=== PATIENT | female | born 1940 | race Caucasian/White ===

== ENCOUNTER 2025-06-27 16:49 | Inpatient (IN) | payer MEDICARE, SELFPAY ==
[2025-06-27] VITALS (26 sets, daily range): BP systolic 144–179; BP diastolic 99–100; PULSE 55–119; TEMP 36.6; O2SAT 94–99; BMI 33.0
--- NOTE | 2025-06-27 17:10 | ECG_ITS ---
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 Measurements Intervals [place] Rate: 64 P: 23 IN: 132 QRS: -25 QRSD: 90 T: 180 QT: 312 QTc: 322 Interpretive Statements Possible Sinus rhythm 4068 Nonspecific Twave abnormality 7202 Moderate left axis deviation 8101 Low QRS voltage in limb leads 8305 Short QTc interval ARTIFACT IN LEAD(S) precludes accurate interpretation, repeat ECG is recommended 9150 abnormal ECG No previous ECG available for comparison Electronically Signed On 06-27-2025 20:34:19 EST by DAVID RITTER M.D.
[2025-06-27 17:42] LABS: Hematocrit 34.1 % (36.0-48.0); Hemoglobin 11.3 g/dL (12.0-16.0); Immature Granulocytes Abs Auto 0.04 10^3/uL (0.00-0.03); Immature Granulocytes Pct Auto 0.4 % (0.0-0.5); Lymphocytes Absolute Auto 1.9 10^3/uL (1.2-3.8); Mean Corpuscular HGB Conc 33.1 g/dL (29.9-35.2); Mean Corpuscular Hemoglobin 29.4 pg (26.7-34.0); Mean Corpuscular Volume 88.6 fL (81.0-99.0); Platelet Count 257 10^3/uL (150-450); Red Blood Count 3.85 10^6/uL (4.20-5.40); White Blood Count 11.1 10^3/uL (4.0-11.0)
--- OUTSIDE RECORDS SUMMARY | 2025-06-27 17:57 | XMS_ITS | Clinical Summary ---
Author Organization [facility] Address [facility] [place] [id number] Care Team Providers Care Field Marketing Director Name Role Phone Unavailable Primary Care Provider Unavailabl e Allergies No known active allergies Medications * This document contains information received from the source organization and may not represent a complete record from that organization. MedicationSigDispense QuantityRefillsLast FilledStart DateEnd DateStatus candesartan/hydrochlorothiazid(ATACAND HCT 32 MG-12.5 MG TAB) Take one(1) tablet daily.ctive LEVOTHYROXINE 112 MCG TAB Take one(1) tablet daily. 0 ctive famotidine(PEPCID AC 20 MG TAB) Take one(1) tablet twice daily. 60 6110/07/2007ctive URSODIOL 300 MG CAP Take one(1) capsule twice daily.ctive CALCIUM CITRATE-VITAMIN D3 500 MG-250 UNIT/2.5 GRAM ORAL POWDER Take one(1) tablet two(2) times daily.ctive ascorbic acid(VITAMIN C 500 MG TAB) Take one(1) tablet daily.ctive MULTIVITAMIN TAB Take one(1) tablet daily.ctive cyanocobalamin(VITAMIN B-12 1,000 MCG TAB) Take one(1) tablet daily.ctive Active Problems ProblemNoted DateDiagnosed DateUnspecified essential aqbsxuwwvlsp49/21/2009 Unspecified zyvkwdzracxlmi76/21/2009Generalized osteoarthrosis, unspecified site 09/11/2008Morbid kkgmxwz1006/26/2008Other and unspecified postsurgical ifxfzkrlwodai46/24/2008 Family History Medical HistoryRelationCommentsCancerFatherlungDiabetesMotherRelationStatus CommentsFatherMother Social History Tobacco UseTypesPacks/DayYears UsedDateSmoking Tobacco: NeverAlcohol UseStandard Drinks/WeekCommentsNo0 (1 standard drink = 0.6 oz pure alcohol)Comments NoSex and Gender InformationValueDate RecordedSex Assigned at BirthNot on file Legal KsuXxrnqx25/02/2012 8:15 AM ESTGender IdentityNot on fileSexual OrientationNot on file Last Filed Vital Signs Vital SignReadingTime TakenCommentsBlood Raqxbsse63/59009/11/2008 2:45 PM EST Czjuc0588/21/2009 2:45 PM NSEMzihplbnowr93.3 ??C (97.3 ??F)08/19/2008 7:55 AM ESTRespiratory Ivdr699910/15/2007 3:10 PM ESTOxygen Vnxcwtdgua05%08/14/2008 3:10 PM ESTInhaled Oxygen Concentration--Afprmk22.9 kg (198 lb 4.8 oz)09/11/2008 2:45 PM XBOApjlil520.5 cm (5' 2 )09/11/2008 2:45 PM ESTBody Mass Index36.27009/11/2008 2:45 PM EST Plan of Treatment Health MaintenanceDue DateLast DoneCommentsAnxiety Mqxdbfyqr14/04/1960Depression Eraxvdqxy82/04/1960DTaP,Tdap,Td Vaccine (1 - Tdap)1Pneumococcal Vaccine: 50+ (1 of 1 - PCV)1992Shingrix Vaccine (1 of 2)1992Bone Density Topqjagyv82/04/2007Diabetes Qvxgpyzts18, 08/13/2008, 08/06/2008, Additional history existsRSV Vaccine (1 - 1-dose 75+ series) 2017Advance Directive Uadkauqkro08/01/2025Covid-19 Vaccine (1 - 2024-26 season)2025Influenza Vaccine (#1)2025 Procedures Procedure NamePriorityDate/TimeAssociated DiagnosisCommentsBASIC METABOLIC PANEL Kfdgryp6508/14/2008 5:30 AM EST from Last 3 Months or Most Recently Relevant to Health Maintenance Results * (ABNORMAL) BASIC METABOLIC PNL (08/14/2008 5:30 AM EST)ComponentValueRef Range Test MethodAnalysis TimePerformed AtPathologist DyvdljfdrTvvpmky517(H)65 - 100 mg/dLHOLMES COUNTY [facility] LABORATORYBUN6(L)8 - 25 mg/dLHOLMES [facility] LABORATORYCreatinine0.58(L)0.70 - 1.40 mg/dLHOLMES [facility] Fxjwfx139537 - 148 mmol/LCOHIOHEALTH [facility] LABORATORYPotassium3.3(L)3.5 - 5.0 mmol/LCOHIOHEALTH [facility]'BLENESS [facility]PITAL WMMHJLODJEAsucsgsb97839 - 110 mmol/LCOHIOHEALTH [facility]'BLENESS [facility] JVOVVDUVZTQA01359 - 32 mmol/LCOHIOHEALTH [facility]'BLEN[facility] LABORATORYAnion Gap80 - 15 mmol/LCOHIOHEALTH [facility]'BLEN[facility] LABORATORYCalcium8.78.5 - 10.5 mg/dL [facility] LABORATORYSpecimen (Source)Anatomical Location / LateralityCollection Method / VolumeCollection TimeReceived TimeBlood specimen (specimen)BLOOD SPECIMEN / Ruwornf5108/14/2008 5:30 AM EST Narrative Authorizing ProviderResult TypeResult StatusPhilip R SchauerLABORATORYFinal ResultPerforming OrganizationAddressCity/State/ZIP CodePhone Number [facility] [address] [place] [address] from Last 3 Months or Most Recently Relevant to Health Maintenance Insurance
--- OUTSIDE RECORDS SUMMARY | 2025-06-27 17:57 | XMS_ITS | Clinical Summary ---
Author Organization [facility] Address [address] [place] [address] Care Team Providers Care Bookkeeping Clerk Name Role Phone Unavailable Primary Care Provider Unavailabl e Social History Tobacco UseTypesPacks/DayYears UsedDateSmoking Tobacco: Never Assessed CommentsUnknownSex and Gender InformationValueDate RecordedSex Assigned at Not on fileLegal AsfElsxrx51/15/2023 7:23 PM EDTGender IdentityNot on fileSexual OrientationNot on file Last Filed Vital Signs Vital SignReadingTime TakenCommentsBlood Lcvjfmqg360/8804/03/2019 12:00 PM EDT Pulse--Temperature--Respiratory Rate--Oxygen Saturation--Inhaled Oxygen Concentration--Wmsihh51.9 kg (163 lb)04/03/2019 12:00 PM UBPLlnjoa046 cm (5' 3 ) 04/03/2019 12:00 PM EDTBody Mass Index28.8704/03/2019 12:00 PM EDT Plan of Treatment Not on file
--- NOTE | 2025-06-27 18:00 | ED_ITS ---
HPI - Weakness General Chief complaint: Weakness Stated complaint: TIRED, LEGS HURTING, WOULD LIKE CHECKED OUT Time Seen by Provider: 06/27/25 17:07 Source: family Mode of arrival: Wheelchair History of Present Illness HPI Narrative: The patient is 85 years old female brought to us by the daughter who is the POA she said that she did not see her for the last 3 days. And today she noted that she is weak and shuffling her gait, the patient admitted that she is feeling today tired more than usual and she have history of joint pain and arthritis and that usually caused her to have pain when she is ambulating The patient lives by herself and she is able to do her daily activities although today she was not able to clean the house. She had no chest pain nausea vomiting or any diarrhea she also denies any decrease in appetite or any fever or chills The patient denies any falls although she sometimes she feels that she is only going to fall Related Data Home Medications ?Medication ?Instructions ?Recorded ?Confirmed No Known Home Medications 06/27/2502/13 Allergies Allergy/AdvReac Type Severity Reaction Status Date / Time No Known Drug Allergies Allergy Verified 06/27/25 17:05 Review of Systems ROS Status of ROS 10 or more systems reviewed and unremark able except as noted in history and below PFSH PFSH Social History Little interest or pleasure in doing things: not at all Feeling down, depressed, or hopeless: not at all Exam Narrative Exam Narrative: Nurses notes and vital signs reviewed and patient is not hypoxic. General: Well-appearing and in no apparent distress. Skin: Warm, dry, no pallor noted. No rash. Head: Normocephalic, atraumatic. Neck: Supple, non-tender. Cardiovascular: Regular Rate and Rhythm without murmur, gallop or rub. Respiratory: No accessory muscle use or respiratory distress. Lungs are clear to auscultation, no wheezing, rales or rhonchi Chest Wall: no tenderness Back: No midline thoracic or lumbar vertebral tenderness. No CVA tenderness Musculoskeletal: normal ROM, no calf or popliteal tenderness, no lower extremity edema/swelling GI: Abdomen is soft, non-distended. Normal bowel sounds. No masses appreciated. No tenderness to palpation. No rebound, guarding, or rigidity noted. Neurological: A&O x1. No cranial nerve dysfunction observed. Constitutional Vital Signs, click to edit/add: Last Vital Signs Temp 97.9 F 06/27/25 16:59 Pulse 69 06/27/25 16:59 Resp 16 06/27/25 16:59 BP 144/100 H 06/27/25 16:59 Pulse Ox 98 06/27/25 16:59 O2 Del Method Room Air 06/27/25 16:59 Course Vital Signs Vital signs: Vital Signs Temperature 97.9 F 06/27/25 16:59 Pulse Rate 69 06/27/25 16:59 Respiratory Rate 16 06/27/25 16:59 Blood Pressure 144/100 H 06/27/25 16:59 Pulse Oximetry 98 06/27/25 16:59 Oxygen Delivery Method Room Air 06/27/25 16:59 Temperature 97.9 F 06/27/25 16:59 Pulse Rate 69 06/27/25 16:59 Respiratory Rate 16 06/27/25 16:59 Blood Pressure 144/100 H 06/27/25 16:59 Pulse Oximetry 98 06/27/25 16:59 Oxygen Delivery Method Room Air 06/27/25 16:59 MDM - Weakness MDM Narrative Medical decision making narrative: The patient EKG showing sinus rhythm with a heart rate of [address] elevation or depression nonspecific changes observed CBC shows no acute significant pathology but the chemistry showing an acute kidney injury with creatinine 1.8 in addition to the potassium being 2.9 The EKG showing no hyperkalemic changes and there is multiple artifacts The patient TSH was significantly elevated above 100 The patient definitely need to start taking her levothyroxine again and I had her case discussed with and he agreed on admitting the patient for further evaluation Lab Data Labs: Lab Results 06/27/25 Range/Units 17:37 WBC 11.1 H (4.0-11.0) 10^3/uL RBC 3.85 L (4.20-5.40) 10^6/uL Hgb 11.3 L (12.0-16.0) g/dL Hct 34.1 L (36.0-48.0) % MCV 88.6 (81.0-99.0) fL MCH 29.4 (26.7-34.0) pg MCHC 33.1 (29.9-35.2) g/dL RDW 14.1 (11.0-15.0) % Plt Count 257 (150-450) 10^3/uL MPV 10.5 (9.5-13.5) fL Neut % (Auto) 72.2 (43.0-75.0) % Lymph % (Auto) 17.3 L (20.5-60.0) % [place] % (Auto) 8.6 (1.7-12.0) % Eos % (Auto) 1.0 (0.9-7.0) % Baso % (Auto) 0.5 (0.2-2.0) % Neut # (Auto) 8.0 H (1.4-6.5) 10^3/uL Lymph # (Auto) 1.9 (1.2-3.8) 10^3/uL [place] # (Auto) 1.0 H (0.3-0.8) 10^3/uL Eos # (Auto) 0.1 (0.0-0.7) 10^3/uL Baso # (Auto) 0.1 (0.0-0.1) 10^3/uL Abs Immat Gran (auto) 0.04 H (0.00-0.03) 10^3/uL Imm/Tot Granulo (auto) 0.4 (0.0-0.5) % Sodium 142 (136-145) mmol/L Potassium 2.9 L* (3.5-5.1) mmol/L Chloride 103 (98-107) mmol/L Carbon Dioxide 29.1 (21.0-32.0) mmol/L Anion Gap 12.8 BUN 16.0 (7.0-18.0) mg/dL Creatinine 1.84 H (0.55-1.02) mg/dL Est GFR ( Amer) 32 L (>=60 mL/min/1.73m^2) Est GFR (Non-Af Amer) 26 L (>=60 mL/min/1.73m^2) BUN/Creatinine Ratio 8.7 Glucose 92 (74-106) mg/dL Calcium 9.6 (8.5-10.1) mg/dL Total Bilirubin 0.7 (0.2-1.0) mg/dL AST 34 (15-37) U/L ALT 37 (14-59) U/L Alkaline Phosphatase 74 (46-116) U/L Troponin I High Sens 6.8 (4.0-51.3) pg/mL Total Protein 6.9 (6.4-8.2) g/dL Albumin 3.7 (3.4-5.0) g/dL Globulin 3.2 g/dL Albumin/Globulin Ratio 1.2 TSH 116.469 H (0.358-3.740) uIU/mL Discharge Plan Discharge Chief Complaint: Weakness Clinical Impression: LJ (acute kidney injury), Hypokalemia, Hypothyroidism Patient Disposition: Admitted As Inpatient Time of Disposition Decision: 18:50
[2025-06-27 18:02] LABS: Alanine Aminotransferase 37 U/L (14-59); Albumin Globulin Ratio 1.2; Albumin Level 3.7 g/dL (3.4-5.0); Alkaline Phosphatase 74 U/L (46-116); Anion Gap 12.8; Aspartate Amino Transferase 34 U/L (15-37); Blood Urea Nitrogen 16.0 mg/dL (7.0-18.0); Calcium 9.6 mg/dL (8.5-10.1); Carbon Dioxide 29.1 mmol/L (21.0-32.0); Chloride 103 mmol/L (98-107); Estimated GFR (African America 32 (>=60 mL/min/1.73m^2); Estimated GFR (Non-African Ame 26 (>=60 mL/min/1.73m^2); Globulin 3.2 g/dL; Glucose 92 mg/dL (74-106); Sodium 142 mmol/L (136-145); Total Protein 6.9 g/dL (6.4-8.2)
[2025-06-27 18:04] LABS: Potassium 2.9 mmol/L (3.5-5.1)
[2025-06-27 18:28] LABS: Thyroid Stimulating Hormone 116.469 uIU/mL (0.358-3.740)
[2025-06-27] MEDS: POTASSIUM BICARBONATE/CIT 25 MEQ TABLET EFF 50 MEQ PO (18:33)
[2025-06-27] MEDS: 0.9 % SODIUM CHLORIDE 1,000 ML 250 ML IV (18:34)
--- NOTE | 2025-06-27 19:26 | CT_ITS ---
The [place] [id number] Patient Name: JAMAL RAMSEY MRN: [id number] date: 1940 Sex: F Assigned Patient Location: ED.MAIN Current Patient Location: ED.MAIN Accession/Order Number: [id number] Exam Date: 06/27/2025 19:38 Report Date: 06/27/2025 20:03 At the request of: OMEGA WEAVER MD Procedure: CT head/brain wo con Unenhanced head CT TECHNIQUE: Contiguous axial imaging of the head. The CT exam was performed using one or more the following dose reduction techniques: Automated exposure control, adjustment of the MA and/or Kv according to patient size, or use of the iterative reconstruction technique. COMPARISON: None HISTORY: Leg weakness. Cognitive loss VENTRICLES: Within normal limits ATROPHY: Diffuse atrophy BRAIN PARENCHYMA: Decreased density of the white matter is most consistent with chronic small vessel disease. HEMORRHAGE: None HERNIATION: No mass effect or herniation INFARCTION: No recent vascular distribution infarction is seen. EXTRA-AXIAL FLUID COLLECTIONS None MIDBRAIN: Unremarkable WOLFGANG: Unremarkable MEDULLA: Unremarkable SINUSES: Unremarkable ORBITS: Grossly unremarkable MASTOIDS: Unremarkable BONY STRUCTURES Intact ADDITIONAL FINDINGS: Atherosclerosis of the carotid siphons CT/CT head/brain wo con IMPRESSION: No acute findings. Impression dictated by: Dilshad Sneed M.D. 06/27/2025 8:03 PM Dictation Location: [place] [address] Electronically authenticated by: [id number] Y Date: 06/27/2025 20:03
--- NOTE | 2025-06-27 19:31 | XR_ITS ---
[place] [id number] Patient Name: JAMAL RAMSEY MRN: [id number] date: 1940 Sex: F Assigned Patient Location: ED.MAIN Current Patient Location: ED.MAIN Accession/Order Number: [id number] Exam Date: 06/27/2025 19:38 Report Date: 06/27/2025 20:01 At the request of: OMEGA WEAVER MD Procedure: XR chest 1V Plain film chest Single view HISTORY: Leg weakness COMPARISON: None FINDINGS: SUPPORT DEVICES: None POSTSURGICAL CHANGES: None HEART: Within normal limits PULMONARY MARY: Within normal limits MEDIASTINUM: Unremarkable LUNGS AND PLEURA: Blunting of the right costophrenic angle. No pneumothorax. Minor interstitial changes. BONY STRUCTURES: Intact ADDITIONAL FINDINGS None XR/XR chest 1V IMPRESSION: Mild blunting of the left costophrenic angle suggesting small effusion. Minor interstitial changes. Impression dictated by: Dilshad Sneed M.D. 06/27/2025 8:01 PM [facility]ictation [facility] Electron[facility] authenticated by: [id number] Y Date: 06/27/2025 20:01
[2025-06-27] MEDS: POTASSIUM CHLORIDE IN WATER 10 MEQ/100 ML PREMIX 100 MEQ IV (19:52)
[2025-06-27 21:39] LABS: Glucose Urine UA NEGATIVE (NEGATIVE)
[2025-06-27 21:51] LABS: Cast Seen? NONE SEEN #/LPF (NONE SEEN); Crystals Seen? Seen #/HPF (None Seen)
[2025-06-27 21:52] LABS: Urine Culture Indicated YES-FRMC
[2025-06-27] MEDS: AMLODIPINE BESYLATE 5 MG TABLET 2.5 MG PO (22:13)
[2025-06-27] MEDS: ASPIRIN 81 MG TABLET.DR PO (22:14)
[2025-06-27] MEDS: DEXAMETHASONE SOD PHOS 4 MG/ML VIAL IV (22:14)
[2025-06-27] MEDS: 0.9 % SODIUM CHLORIDE 10 ML VIAL 5 ML IV (22:15)
[2025-06-27] MEDS: 0.9 % SODIUM CHLORIDE 1,000 ML 0.1 ML IV (23:18)
[2025-06-28] VITALS (21 sets, daily range): BP systolic 119–160; BP diastolic 71–90; PULSE 57–87; TEMP 36.4–36.6; O2SAT 92–95
[2025-06-28] MEDS: WATER FOR INJECTION, STERILE 20 ML VIAL INJ (03:06)
[2025-06-28] MEDS: ZIPRASIDONE MESYLATE 20 MG VIAL 10 MG IM (03:06)
[2025-06-28] MEDS: LEVOTHYROXINE SODIUM 100 MCG VIAL 50 MCG IV (06:05)
--- NOTE | 2025-06-28 07:00 | US_ITS ---
The [address] [address] Patient Name: JAMAL RAMSEY MRN: [id number] date: 1940 Sex: F Assigned Patient Location: Current Patient Location: Accession/Order Number: [id number] Exam Date: 06/28/2025 08:30 Report Date: 06/28/2025 10:32 At the request of: OMEGA WEAVER MD Procedure: US renal BI BILATERAL RENAL AND BLADDER ULTRASOUND CLINICAL HISTORY: Renal failure, r/o obstructive uropathy COMPARISON: None The renal cortex is slightly hyperechoic. Estimation of renal size is approximately 11.9 cm on the right and 9.3 cm on the left. There are echogenic foci at the left kidney, largest at the midpole measuring 9 mm that may be stones. There are also subcentimeter left renal cysts. There is pelvocaliectasis on the right though there may also be a separate cystic area measuring just over 4 cm in size. No left hydronephrosis is noted. There is a small amount of fluid within Cohen's pouch. The urinary bladder is markedly distended with a volume of 1331 mL. No contour or intraluminal abnormalities are seen. Patient was unable to void. US/US renal BI IMPRESSION: LEFT NEPHROLITHIASIS AND RENAL CYSTS. MILD RIGHT HYDRONEPHROSIS. SMALL AMOUNT OF RIGHT PERINEPHRIC FLUID. MARKEDLY DISTENDED URINARY BLADDER. FOLLOW-UP ULTRASOUND OF THE RIGHT KIDNEY COULD BE CONSIDERED ONCE PATIENT VOIDS OR A SALAMANCA IS PLACED. Impression dictated by: Olivia Lenz M.D. 06/28/2025 10:32 AM Dictation Location: [place] [address] Electronically authenticated by: [id number] Y Date: 06/28/2025 10:32
--- NOTE | 2025-06-28 07:20 | CA_ITS ---
Patient Name: JAMAL RAMSEY MR#: [id number] : 1940 Exam Date: 06/28/2025 Ordering Doctor: OMEGA WEAVER ECHOCARDIOGRAM REPORT PROCEDURE: CA ECHO DOPPLER COMPLETE INDICATIONS: CHF COMPARISON: None. DESCRIPTION: COMPLETE ECHOCARDIOGRAM Real-time transthoracic echocardiography with 2D, M-mode, spectral and color flow Doppler performed. QUALITY: Technical quality was good. LEFT VENTRICLE: Normal chamber size. Proximal septal hypertrophy (sigmoid septum). Mild to moderate concentric hypertrophy. Global left ventricular systolic function is normal. LV EF: Estimated left ventricular ejection fraction is 55-60%. DIASTOLIC: Diastolic function is indeterminate. ATRIAL SEPTUM: LEFT ATRIUM: Moderate dilatation. RIGHT ATRIUM: Mild dilatation. RIGHT VENTRICLE: Normal chamber size. Normal right ventricular systolic function. TRICUSPID VALVE: Normal mobility and thickness. No stenosis with mild regurgitation. No evidence of pulmonary hypertension. RVSP 30 mmHg. MITRAL VALVE: Normal mobility and thickness. No evidence of mitral valve stenosis. Mild mitral annular calcification. Trivial mitral regurgitation. AORTIC VALVE: Normal trileaflet appearance. Thickened aortic valve. Normal leaflet mobility. No evidence of aortic valve stenosis. No aortic regurgitation. AORTIC ROOT: Normal diameter and appearance, measuring 3.4 cm. The ascending aorta is normal in size measuring 2.8 cm. PULMONIC VALVE: Normal thickness and mobility. Normal with Trivial regurgitation. PERICARDIUM: Small circumferential pericardial effusion. No evidence of tamponade. IVC: Collapses with inspiration. Normal size. PLEURA: Small pleural effusion. CONCLUSION: 1. Mild to moderate concentric left ventricular hypertrophy with normal systolic function. Estimated LVEF is 55 to 60%. 2. Normal right ventricular size and systolic function. 3. Mild to moderate biatrial dilatation. 4. Mild tricuspid regurgitation. 5. Normal right-sided pressures. 6. Small circumferential pericardial effusion. 7. Left pleural effusion is seen. Adult Echocardiography Procedure Report Left Ventricle LVEDD (3.7 - 5.6 cm): 4.23 cm LVESD (2.2 - 4.0 cm): 2.61 cm LVIVS thickness (0.6 - 1.2 cm): 1.52 cm LVPW thickness (0.5 - 1.0 cm): 1.25 cm e': 0.07 m/s E - e': 9.47 LVOT Max Gradient: 3.16 mm[Hg] LVOT Area (cm2): 0.89 m/s Peak Velocity (LVOT): 0.89 m/s Mean Velocity (LVOT): 0.60 m/s LVOT Diameter 2.11 cm Left Ventricular Ejection Fraction: 55-60 % Left Atrium LA Volume Index (2D A2C): 38.21 ml/m2 Left Atrium Systolic Dimension: 3.97 cm Mitral Valve MV E to A Ratio: 0.98 Mitral Valve A-Wave Peak Velocity: 0.70 m/s Mitral Valve E-Wave Peak Velocity: 0.68 m/s Right Ventricle RV Internal Diastolic Dimension: 3.08 cm Aorta AO Root Diam: 3.35 cm Ascending Ao Diam: 2.79 cm Aortic Valve AoV Area (Peak James): 2.08 cm2, 2.08 cm2 AoV Area (VTI): 1.94 cm2, 1.94 cm2 Peak Velocity(Antegrade Flow): 1.50 m/s Peak Gradient(Antegrade Flow): 8.95 mm[Hg] Mean Velocity(Antegrade Flow): 1.04 m/s Mean Gradient(Antegrade Flow): 5.06 mm[Hg] Velocity Time Integral: 32.24 cm Tricuspid Valve Peak Velocity (Regurgitant Flow): 2.42 m/s, 2.63 m/s, 2.26 m/s Pulmonic Valve Mean Gradient: 1.65 mm[Hg] Mean Velocity: 0.60 m/s Peak Velocity: 0.86 m/s, 0.95 m/s Peak Gradient: 2.95 mm[Hg], 3.59 mm[Hg] Right Atrium Right Atrium Systolic Pressure: 32.24 ml, 32.24 ml Dictated by: Latrell Costa M.D. on 06/28/2025 at 18:08 Approved by: Latrell Costa M.D. on 06/28/2025 at 18:12
[2025-06-28 07:51] LABS: Hematocrit 33.0 % (36.0-48.0); Hemoglobin 11.0 g/dL (12.0-16.0); Mean Corpuscular HGB Conc 33.3 g/dL (29.9-35.2); Mean Corpuscular Hemoglobin 29.6 pg (26.7-34.0); Mean Corpuscular Volume 88.7 fL (81.0-99.0); Platelet Count 261 10^3/uL (150-450); Red Blood Count 3.72 10^6/uL (4.20-5.40); White Blood Count 7.9 10^3/uL (4.0-11.0)
--- NOTE | 2025-06-28 08:00 | CM.NOTE ---
Rounds made with Dr. Morales, discussed reason for admission and plan of care with pt and daughter. Pt does have spot on nose that Dr. Morales would like pt to f/u with dermatology. CM will come back and discuss with pt and daughter for outpatient f/u.
[2025-06-28 08:04] LABS: Alanine Aminotransferase 32 U/L (14-59); Albumin Globulin Ratio 1.1; Albumin Level 3.4 g/dL (3.4-5.0); Alkaline Phosphatase 73 U/L (46-116); Anion Gap 12.4; Aspartate Amino Transferase 28 U/L (15-37); Blood Urea Nitrogen 14.0 mg/dL (7.0-18.0); Calcium 9.3 mg/dL (8.5-10.1); Carbon Dioxide 28.0 mmol/L (21.0-32.0); Chloride 103 mmol/L (98-107); Estimated GFR (African America 37 (>=60 mL/min/1.73m^2); Estimated GFR (Non-African Ame 30 (>=60 mL/min/1.73m^2); Globulin 3.2 g/dL; Glucose 120 mg/dL (74-106); Magnesium 1.9 mg/dL (1.8-2.4); Potassium 3.4 mmol/L (3.5-5.1); Sodium 140 mmol/L (136-145); Total Protein 6.6 g/dL (6.4-8.2)
--- NOTE | 2025-06-28 08:52 | SWNOTE1 ---
DAIANA reviewing chart and noticed pt was listed with [employer] insurance. DAIANA reviewed the insurance card scanned in and it is an [employer] Medicare card. DAIANA notified Pippa in billing, she did verify it was [employer] and she will fix it.
[2025-06-28] MEDS: HEPARIN SODIUM (PORCINE) 5,000 UNIT/ML VIAL 5000 UNIT SUBQ ×2 (09:26→20:41)
[2025-06-28] MEDS: DEXAMETHASONE SOD PHOS 4 MG/ML VIAL IV (09:26)
[2025-06-28] MEDS: AMLODIPINE BESYLATE 5 MG TABLET 2.5 MG PO (09:26)
[2025-06-28] MEDS: ASPIRIN 81 MG TABLET.DR PO ×2 (09:26→12:57)
--- NOTE | 2025-06-28 09:57 | CM.NOTE ---
CM back in to discuss need for f/u appointment with dermatology. Daughter requesting [facility]. Piasa will schedule appointment and put on discharge paper for dermatology as outpatient.
[2025-06-28 10:07] LABS: Iron 16.0 ug/dL (50.0-170.0); Percent Iron Saturation 6.6 %; Total Iron Binding Capacity 243.0 ug/dL (250.0-450.0)
--- NOTE | 2025-06-28 10:39 | MR_ITS ---
[address] [address] Patient Name: JAMAL RAMSEY MRN: [id number] date: 1940 Sex: F Assigned Patient Location: [place] Current Patient Location: [place] Accession/Order Number: [id number] Exam Date: 06/28/2025 11:20 Report Date: 06/28/2025 12:22 At the request of: OMEGA WEAVER MD Procedure: MR head/brain wo con MR head/brain wo con 06/28/2025 11:55 AM SIGN AND SYMPTOMS: ^wc ^Altered mental status, weakness PROTOCOL: Multiplanar multisequence MR images of the brain without IV contrast COMPARISON: 06/27/2025 FINDINGS: Extra axial spaces: There is age-related cortical atrophy. Atrophy is most pronounced along the medial aspect of the temporal lobes bilaterally. Hemorrhage: None. Ventricular system: Within normal limits. Basal cisterns: Within normal limits and not effaced. Cerebral parenchyma: T2 and FLAIR hyperintense signal is noted in the periventricular and subcortical white matter. Midline shift: None.. Cerebellum: Within normal limits. Brainstem: Within normal limits. OTHER: Calvarium: Normal marrow signal. Vascular system: Satisfactory flow voids within the anterior and posterior circulation. Visualized Paranasal sinuses: Within normal limits. Visualized Orbits: Within normal limits. Visualized upper cervical spine: Within normal limits. Sella and skull base: Within normal limits. MR/MR head/brain wo con IMPRESSION: No acute intracranial pathology. There is age-related cortical atrophy. Atrophy is most pronounced along the medial aspect of the temporal lobes bilaterally. T2 and FLAIR hyperintense signal is noted in the periventricular and subcortical white matter. Impression dictated by: Reza Mccauley M.D. 06/28/2025 12:22 PM Dictation Location: [place] [address] Electronically authenticated by: [id number] Y Date: 06/28/2025 12:22
--- NOTE | 2025-06-28 10:42 | PM.HP ---
HPI H&P: HPI History of Present Illness Chief complaint: TIRED, LEGS HURTING, WOULD LIKE CHECKED OUT, Narrative: Mrs. Bergeron is an 85-year-old female who was brought to the emergency room by her daughter with a complaint of not acting well. No specific signs or symptoms but daughter reported that patient is getting weaker, fatigue, having memory loss, some confusion. No focal weakness or numbness. No slurred speech. No fever or chills. Patient has not seen her doctor for a while. Patient is not taking her medications as she is supposed to. Patient has significant cognitive loss. Her daughter is at the bedside providing information. She was found to have significant elevation of the TSH. She was found to have kidney failure as well. No old records available on admission. This morning I was able to find out that her kidney function was normal in 2023. TSH was 35 in 2023 and now it is 116. Opioid HPI Opioid Management Most Recent Pain and Opioid Data: Last Pain Assessment Today, 10:18 Last ORT Total Score 0 06/27/25, 21:31 Last ORT Risk Category Low Risk 06/27/25, 21:31 PFSH PFSH Social History Highest level of school completed/degree received: don't know Little interest or pleasure in doing things: not at all Feeling down, depressed, or hopeless: not at all Gender Identity: female Meds Home Medications and Allergies Home Medications ?Medication ?Instructions ?Recorded ?Confirmed ?Type No Known Home Medications 06/27/25 06/27/25 History Allergies Allergy/AdvReac Type Severity Reaction Status Date / Time No Known Drug Allergies Allergy Verified 06/27/25 17:05 Exam Narrative Exam Narrative: Patient is sitting in bed. Cachectic and frail in appearance. Bitemporal muscle wasting. Upper and lower extremities muscle wasting and atrophy. Patient has half centimeter growth on her nose suspected to be basal cell. Neck is supple. Chest is clear, heart is regular. Abdomen is soft, nontender. Lower extremities +1 pitting edema. Muscle wasting and atrophy. Patient has cognitive loss. Unable to provide meaningful information. Her daughter is providing information. Able to answer yes or no questions. Able to follow simple command. Unable to stand up and ambulate on her own without assist Constitutional Vital Signs, click to edit/add: Last Vital Signs Temp 97.6 F 06/28/25 07:36 Pulse 79 06/28/25 10:00 Resp 16 06/28/25 07:36 BP 156/89 H 06/28/25 07:36 Pulse Ox 95 06/28/25 07:36 O2 Del Method Room Air 06/28/25 07:36 Results Labs Labs: Short CBC 06/27/25 06/28/25 Range/Units 17:37 07:35 WBC 11.1 H 7.9 (4.0-11.0) 10^3/uL Hgb 11.3 L 11.0 L (12.0-16.0) g/dL Hct 34.1 L 33.0 L (36.0-48.0) % Plt Count 257 261 (150-450) 10^3/uL BMP 06/27/25 06/28/25 17:37 07:35 Sodium 142 140 Potassium 2.9 L* 3.4 L Chloride 103 103 Carbon Dioxide 29.1 28.0 BUN 16.0 14.0 Creatinine 1.84 H 1.63 H Glucose 92 120 H Calcium 9.6 9.3 Liver Function 06/27/25 06/28/25 Range/Units 17:37 07:35 Total Bilirubin 0.7 0.7 (0.2-1.0) mg/dL AST 34 28 (15-37) U/L ALT 37 32 (14-59) U/L Alkaline Phosphatase 74 73 (46-116) U/L Albumin 3.7 3.4 (3.4-5.0) g/dL Urine 06/27/25 Range/Units 21:00 Urine Color Lt. yellow (YELLOW) Urine Clarity Sl cloudy (CLEAR) Urine pH 6.5 (5.0-9.0) Ur Specific [place] 1.015 (1.005-1.025) Urine Protein Trace (NEG/TRACE) mg/dL Urine Glucose (UA) Negative (NEGATIVE) mg/dL Assessment and Plan Assessment and Plan (1) Hypothyroidism: (2) Hypokalemia: (3) LJ (acute kidney injury): Plan Renal failure, stage IV on presentation. Creatinine is 1.84 and GFR is 26. This is likely subacute and progressive. I was able to find out that her kidney function was normal in 2023. I requested ultrasound of the kidney which showed right-sided hydronephrosis and significant dilatation of the bladder. Aguillon catheter will be placed in Monitor kidney function. Consider repeat ultrasound in 7 days. Follow-up with urology regarding urinary retention. Significant dilatation of the bladder, urinary retention. This is most likely causing her progressive renal failure. Unknown etiology of this retention. Patient may have pelvic pathology. Patient may have neurogenic bladder. Patient will have a Aguillon catheter. She will be started on Flomax. She will be arranged to follow-up with urology. She may need to have cystoscopy and/or urodynamic study, pelvic exam and others. Consider CAT scan of the abdomen to rule out FLIGHT CREW ORDNANCEMAN: Or pelvic pathology causing her urinary retention Hypothyroidism. Significant elevation of the TSH. TSH is 115. I was able to find out that last year her TSH was 35. Patient is not taking any medication. This might be causing some of the nonspecific symptoms reported by her daughter on presentation I started patient on intravenous Synthroid as well as Decadron suspecting that she may have degree of adrenal insufficiency Requested echocardiogram rule out severe cardiomyopathy caused by hypothyroidism I would recommend repeat TSH in 4 to 6 weeks and additional titration of thyroid hormonal therapy would need to be accomplished Altered mental status, cognitive loss, memory loss, generalized weakness. This could all be caused by progressive renal failure and/or severe hypothyroidism Requested CAT scan of the brain which does not show any acute intracranial process. Requested MRI of the brain rule out recent stroke Start patient on aspirin daily for primary stroke prevention Lower extremities edema. Could be related to hypothyroidism Requested venous study rule out DVT. Requested echocardiogram rule out cardiomyopathy caused by severe hypothyroidism Half centimeter lesion the right side of her nose. Basal cell carcinoma in the left proven otherwise. Recommend biopsy. To be done in the outpatient setting. Hypokalemia Potassium supplementation UTI I started the patient on ceftriaxone Requested urine and blood cultures Anemia, no evidence of acute blood loss. 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 Start patient on iron supplementation. Patient will likely require to have anemia workup to be done in the outpatient setting to be handled by PCP in collaboration with other needed outpatient providers. This may include but not limited to EGD, colonoscopy, referral to see hematology and other needed age-appropriate cancer screening. Cachexia, frailty, failure to thrive, muscle wasting and atrophy. Mild protein calorie malnutrition I started patient on oral protein supplementation. Patient may need to have cachexia and weight loss investigation which would need to include but not limited to ruling out underlying malignancy to be arranged in hand by PCP in the outpatient setting. She may need to have EGD, colonoscopy, breast exam, pelvic exam, Pap smear and others. Chronic, subacute medical conditions not listed above, abnormal labs and imaging, incidental findings seen on labs and or imaging. These would need to be addressed. Could be addressed later on or in the outpatient setting by PCP collaboration with other needed outpatient providers when time and condition are appropriate. I had discussed her case with her daughter who is POA at the bedside. I provided her information about her disease, prognosis, expectation and trajectory. Answered all of her questions.
--- NOTE | 2025-06-28 10:57 | SWNOTE1 ---
PT did recommend SNF. SW to speak with pt and PORosa who is the daughter, Анна.
--- NOTE | 2025-06-28 11:37 | SWNOTE1 ---
SW spoke to case management and she was able to speak with pt and family in room in regards to skilled. They would like anywhere in [place] besides [facility]. SW to send referral to [facility] as they had reached out to [facility] in past few days and stated they had openings and they also have the highest rating on [email or web address] of facilties in [place]. DAIANA reached out to [facility] to make sure they still have beds, waiting to hear back.
--- NOTE | 2025-06-28 11:38 | CM.NOTE ---
Important Message From Medicare discussed with pt, pt and daughter verbalize understanding. Daughter signs paper. Original given to pt and copy placed in pt's chart. Talked with pt and daughter regarding PT evaluation and recommendations for skilled therapy at discharge. Both are in agreement and voice they would like [facility], [facility] does not any longer have skilled. Next choice would be [facility], daughter voices they are really open to any facility in [place] besides [facility]. SW updated and will send referral.
--- NOTE | 2025-06-28 11:47 | SWNOTE1 ---
Referral sent to [facility]. Referral included face sheet, ED note, H&P, provider notes, case management report, wound consult, nursing notes, diagnostic imaging, med list, and PT note. SW to send OT once completed.
--- NOTE | 2025-06-28 12:26 | SWNOTE1 ---
DAIANA received an email from Adriana at [facility] and they have accepted and precert will be started. DAIANA will send OT once completed.
[2025-06-28] MEDS: POTASSIUM CHLORIDE 10 MEQ ER TABLET 20 MEQ PO (12:57)
[2025-06-28] MEDS: TAMSULOSIN HCL 0.4 MG CAPSULE PO (12:57)
--- NOTE | 2025-06-28 13:15 | SWNOTE1 ---
SW stopped in to speak with pt in her room. Pt's 2 daughters were in the room as well. SW updated them that [facility] has accepted and started the precert. DAIANA explained that the insurance may take a day or 2 (or longer with weekend) to approve her to go and we will have to wait for her to be medically stable for discharge as well. They voiced understanding. DA[facility]NA did advise there is a chance of discharge over the weekend and [facility] will contact us if she is approved. No questions at this time.
--- NOTE | 2025-06-28 13:20 | SWNOTE1 ---
SW completed [facility]000 online. SW to complete packet for the weekend.
--- NOTE | 2025-06-28 13:57 | SWNOTE1 ---
SW faxed OT note to Reji at [facility].
[2025-06-28 15:26] LABS: Ferritin 738.0 ng/mL (8.0-252.0)
--- NOTE | 2025-06-28 15:27 | SWNOTE1 ---
SW stopped in pt's room and updated both daughters of pt's follow up appointment with [facility] next week. SW provided them with date and time of apt and address and phone number of [facility]. DAIANA advised to coordinate with [facility] in regards to transport. They voiced understanding.
--- NOTE | 2025-06-28 16:42 | PC.NURSE ---
Ensure Clear given at this time
[2025-06-28] MEDS: 0.9 % SODIUM CHLORIDE 10 ML VIAL 5 ML IV (20:41)
[2025-06-29] VITALS (17 sets, daily range): BP systolic 125–157; BP diastolic 79–95; PULSE 62–99; TEMP 35.3–36.6; O2SAT 92–97
--- NOTE | 2025-06-29 00:58 | PC.NURSE ---
Pt set off bed alarm. RN went to room to assist patient. Pt states that she needs to get home to take her son-in-law to work and is adamant that she is leaving; however, patient is unaware that she is in the hospital. RN tried to reorient patient and was unsuccessful. Pt was willing to get back in the bed but stated, your boss is going to hear about this.
--- NOTE | 2025-06-29 01:20 | PC.NURSE ---
pt set off bed alarm. RNs in room to assist. Pt states that her [id number] has to be to [facility] by 0720 so she needs to leave here and that she visits her 86-year old mother everyday. Pt still does not understand that she is in the hospital. Able to get patient re-situated in the bed and bed alarm is re-set.
--- NOTE | 2025-06-29 01:44 | PC.NURSE ---
pt again set off bed alarm and is insisting that her sister and daughter are on their way to pick her up. RNs tried multiple times to re-orient the patient and were unsuccessful. Pt is becoming increasingly agitated at this time stating that the nurses are liars who won't let her leave.
[2025-06-29] MEDS: LORAZEPAM 2 MG/ML VIAL 0.5 MG IV (02:35)
[2025-06-29 06:49] LABS: Anion Gap 12.7; Blood Urea Nitrogen 15.0 mg/dL (7.0-18.0); Calcium 8.9 mg/dL (8.5-10.1); Carbon Dioxide 26.8 mmol/L (21.0-32.0); Chloride 104 mmol/L (98-107); Estimated GFR (African America 36 (>=60 mL/min/1.73m^2); Estimated GFR (Non-African Ame 30 (>=60 mL/min/1.73m^2); Glucose 106 mg/dL (74-106); Potassium 3.5 mmol/L (3.5-5.1); Sodium 140 mmol/L (136-145)
[2025-06-29 07:08] LABS: Vitamin B12 650 pg/mL (232-1245)
--- NOTE | 2025-06-29 08:33 | PT.DAILY ---
Physical Therapy Daily Note PT Daily Note/Assess Start: 06/29/25 08:30 Freq: Status: Active Protocol: Document 06/29/25 08:30 JONATHAN (Rec: 06/29/25 08:33 JONATHAN [id number]) Visit Not Completed Visit Not Completed Visit Not Completed Pt level of alertness,Other Due to: Other Reason Visit Pt with increased agitation and confusion throughout Not Completed the night, unable to rest. Pts family declines wanting pt in chair as she keeps nodding off trying to sleep. Pt awake at this time and also declines supine ex, while wishing to rest. Pt does seem confused - asking about folding laundry and smoothing things out? Pt is left in supine with her daughter present and call light within reach. Physical Therapy Daily Note/Assessment Time In/Time Out Time In 08:29 Time Out 08:30 Pain In Pain N/A Pain Out Pain N/A GG. Functional Abilities and Goals-Complete for Swing Bed Patients Only [id number]. Self-Care [id number]. Mobility
--- NOTE | 2025-06-29 08:35 | CT_ITS ---
[address] [address] Patient Name: JAMAL RAMSEY MRN: [id number] date: 1940 Sex: F Assigned Patient Location: Current Patient Location: Accession/Order Number: [id number] Exam Date: 06/29/2025 10:00 Report Date: 06/29/2025 10:51 At the request of: OMEGA WEAVER MD Procedure: CT abdomen pelvis wo con CT abdomen pelvis wo con 06/29/2025 10:30 AM SIGNS AND SYMPTOMS: ^Severe bladder dilatation, r/o pelvic pathology TECHNIQUE: Multidetector ct axial images of the abdomen and pelvis were obtained without IV contrast. Multiplanar reformats were performed and reviewed to further define anatomy and possible pathology. CT was performed with one or more of the following dose reduction techniques: Automated exposure control, adjustment of the mA and/or kV according to patient size, or use of iterative reconstruction technique. COMPARISON: None. FINDINGS: Lower Chest: Small bilateral pleural effusions are noted. There is compressive atelectasis in the lung bases. Atherosclerotic changes are noted in the coronary arteries ABDOMEN: Liver: Within normal limits. Bile Ducts: Normal caliber. Gallbladder: No calcified gallstones. Normal caliber wall. Pancreas: Within normal limits. Spleen: Within normal limits. Adrenals: Within normal limits. Kidneys: There is a 1 cm nonobstructing stone in the left frontal consistent. There is a 2 mm nonobstructing stone in the right renal collecting system. There is right-sided hydronephrosis. There is significant fat stranding along the right renal pelvis. Pelvis: Reproductive Organs: No pelvic masses. Ureters: There is a 3 mm stone in the distal right ureter. The proximal right ureter is distended. Bladder: There is a Aguillon catheter within a decompressed bladder. Bowel: There is a moderate amount stool within the colon. There is no bowel obstruction. Postsurgical changes are noted along the gastric lumen. Mesenteric Lymph Nodes: No enlarged mesenteric lymph nodes. Peritoneum: There is a small amount of free fluid within the pelvis. Vessels: Atherosclerotic changes are noted in the abdominal aorta and its branches. Retroperitoneum: Within normal limits. Abdominal Wall: There is diffuse anasarca. Bones: Degenerative changes are noted in the thoracolumbar spine, hips, and sacroiliac joints. CT/CT abdomen pelvis wo con IMPRESSION: There is right-sided hydronephrosis with significant fat stranding surrounding the right renal pelvis. There is a 3 mm stone in the distal right ureter. The proximal right ureter is distended. Additional nonobstructing stones are noted in the renal collecting systems. Bladder is decompressed with a Aguillon catheter in the bladder lumen. Bilateral pleural effusions are noted with compressive atelectasis along the lung bases. Anasarca along the abdominal wall. Impression dictated by: Reza Mccauley M.D. 06/29/2025 10:51 AM Dictation Location: [place] [address] Electronically authenticated by: [id number] Y Date: 06/29/2025 10:51
--- NOTE | 2025-06-29 08:40 | PM.PN ---
Progress Note: Subjective Subjective Interval history: Patient had acute delirium, disorientation, confusion, agitation, restlessness, trying to pull out her IV and Aguillon catheter at night requiring the use of Ativan. This morning the patient is [place]. Able to answer yes or no questions. Significant loss of cognition Exam Narrative Exam Narrative: Patient is laying in bed. Cachectic and frail in appearance. Bitemporal muscle wasting. Upper and lower extremities muscle wasting and atrophy. Patient has half centimeter growth on her nose suspected to be basal cell. Neck is supple. Chest is clear, heart is regular. Abdomen is soft, nontender. Lower extremities +1 pitting edema. Muscle wasting and atrophy. Patient has cognitive loss. Unable to provide meaningful information. Able to answer yes or no questions and follow simple commands. Very weak. Unable to sit up or stand up on her own Constitutional Vital Signs, click to edit/add: Last Vital Signs Temp 96.4 F L 06/29/25 08:00 Pulse 76 06/29/25 08:00 Resp 17 06/29/25 08:00 BP 149/94 H 06/29/25 08:00 Pulse Ox 96 06/29/25 08:00 O2 Del Method Room Air 06/29/25 08:00 Progress Note: Objective Labs Labs: BMP 06/29/25 06:18 Sodium 140 Potassium 3.5 Chloride 104 Carbon Dioxide 26.8 BUN 15.0 Creatinine 1.65 H Glucose 106 Calcium 8.9 Progress Note: A&P Assessment and Plan (1) Hypothyroidism: (2) Hypokalemia: (3) LJ (acute kidney injury): Plan Renal failure, stage IV on presentation. Creatinine is 1.84 and GFR is 26. This is likely subacute and progressive. I was able to find out that her kidney function was normal in 2023. I requested ultrasound of the kidney which showed right-sided hydronephrosis and significant dilatation of the bladder. Aguillon catheter will be placed in Monitor kidney function. Consider repeat ultrasound in 7 days. Follow-up with urology regarding urinary retention. Significant dilatation of the bladder, urinary retention. This is most likely causing or at least contributing to her progressive renal failure. Unknown etiology of this retention. Patient may have pelvic pathology. Requested CT abdomen and pelvis to rule out SUBSCRIPTION AGENT malignancy or pelvic pathology. Patient may have neurogenic bladder. Patient will have a Aguillon catheter. She will be started on Flomax. She will be arranged to follow-up with urology. She may need to have cystoscopy and/or urodynamic study, pelvic exam and others. Consider CAT scan of the abdomen to rule out SUBSCRIPTION AGENT: Or pelvic pathology causing her urinary retention Hypothyroidism. Significant elevation of the TSH. TSH is 115. I was able to find out that last year her TSH was 35. Patient is not taking any medication. This might be causing some of the nonspecific symptoms reported by her daughter on presentation I started patient on intravenous Synthroid as well as Decadron suspecting that she may have degree of adrenal insufficiency Requested echocardiogram rule out severe cardiomyopathy caused by hypothyroidism I would recommend repeat TSH in 4 to 6 weeks and additional titration of thyroid hormonal therapy would need to be accomplished Metabolic encephalopathy, neurodegenerative disorder, probable vascular dementia. Altered mental status, cognitive loss, memory loss, generalized weakness. This could all be caused by progressive renal failure and/or severe hypothyroidism Requested CAT scan of the brain which does not show any acute intracranial process. Requested MRI of the brain rule out recent stroke. MRI does not show any acute stroke but positive for significant brain atrophy. Start patient on aspirin daily for primary stroke prevention Her altered mentation is likely secondary to vascular dementia, senile degeneration of the brain versus other neurodegenerative disorder in the setting of metabolic encephalopathy. Lower extremities edema. Could be related to hypothyroidism Requested venous study rule out DVT. Venous duplex is negative for DVT Requested echocardiogram rule out cardiomyopathy caused by severe hypothyroidism. Echocardiogram does not show cardiomyopathy. Start the patient on gentle diuresis. Continue heparin subcu for DVT prophylaxis. Half centimeter lesion the right side of her nose. Basal cell carcinoma until proven otherwise. Recommend biopsy. To be done in the outpatient setting. Hypokalemia Potassium supplementation UTI I started the patient on ceftriaxone Requested urine and blood cultures, pending Anemia, no evidence of acute blood loss. 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 Start patient on iron supplementation. Patient will likely require to have anemia workup to be done in the outpatient setting to be handled by PCP in collaboration with other needed outpatient providers. This may include but not limited to EGD, colonoscopy, referral to see hematology and other needed age-appropriate cancer screening. Cachexia, frailty, failure to thrive, muscle wasting and atrophy. Mild protein calorie malnutrition I started patient on oral protein supplementation. Requested CT abdomen pelvis rule out abdominal malignancy Patient may need to have cachexia and weight loss investigation which would need to include but not limited to ruling out underlying malignancy to be arranged in hand by PCP in the outpatient setting. She may need to have EGD, colonoscopy, breast exam, pelvic exam, Pap smear and others. Chronic, subacute medical conditions not listed above, abnormal labs and imaging, incidental findings seen on labs and or imaging. These would need to be addressed. Could be addressed later on or in the outpatient setting by PCP collaboration with other needed outpatient providers when time and condition are appropriate. I had discussed her case with her daughter who is POA at the bedside on 06/28. I provided her information about her disease, prognosis, expectation and trajectory. Answered all of her questions. Urinary Catheter Management Urinary Catheter Management Urethral: Cath placed during this visit: yes Urethral indwelling: No Insertion date: 06/28/25 Insertion time: 12:38
[2025-06-29] MEDS: POTASSIUM CHLORIDE 10 MEQ ER TABLET 20 MEQ PO (09:15)
[2025-06-29] MEDS: AMLODIPINE BESYLATE 5 MG TABLET 2.5 MG PO (09:16)
[2025-06-29] MEDS: TORSEMIDE 20 MG TABLET PO (09:17)
[2025-06-29] MEDS: ASPIRIN 81 MG TABLET.DR PO (09:17)
[2025-06-29] MEDS: TAMSULOSIN HCL 0.4 MG CAPSULE PO (09:17)
[2025-06-29] MEDS: HEPARIN SODIUM (PORCINE) 5,000 UNIT/ML VIAL 5000 UNIT SUBQ ×2 (09:18→20:30)
--- NOTE | 2025-06-29 11:27 | W.ACP ---
Advance Care Planning Advance Care Planning Discussion Advance care planning discussion summary: Advance care planning and goals of care discussion I had a conversation with her son and 2 daughters (including POA ) lasted for about 25 minutes. I gave them update on her condition, status and treatment plan. I gave them information about labs, imaging and medication regimen. I answered all of their questions related to that. We discussed her CODE STATUS. I explained in simple terms the process of CPR including chest compressions, shocks, intubation and life support. I explained in basic terms the difference between full code, CCA and CC. I explained in layman's terms difference between aggressive and a comfort care approach. 2 daughters and 1 son stated that the patient has living well. Based on her situation at this time, they believe that we should not put her through any aggressive medical care such as aggressive testing, procedures, follow-up and referral. Her son and 2 daughters want to provide her with care that is intended for comfort and comfort care only. They do not want CCA. They want to CC. They fully understand what CC means. I will change her CODE STATUS accordingly.
[2025-06-29] MEDS: QUETIAPINE FUMARATE 25 MG TABLET 50 MG PO (19:45)
[2025-06-29] MEDS: 0.9 % SODIUM CHLORIDE 10 ML VIAL 5 ML IV (19:45)
[2025-06-30 06:54] LABS: Anion Gap 14.3; Blood Urea Nitrogen 14.0 mg/dL (7.0-18.0); Calcium 8.7 mg/dL (8.5-10.1); Carbon Dioxide 27.9 mmol/L (21.0-32.0); Chloride 103 mmol/L (98-107); Estimated GFR (African America 34 (>=60 mL/min/1.73m^2); Estimated GFR (Non-African Ame 28 (>=60 mL/min/1.73m^2); Glucose 76 mg/dL (74-106); Potassium 3.2 mmol/L (3.5-5.1); Sodium 142 mmol/L (136-145)
[2025-06-30 08:00] VITALS: BP 136/73; PULSE 58; TEMP 36.5; O2SAT 92
--- NOTE | 2025-06-30 09:13 | P.DS_ITS ---
DS: Providers Provider Date of admission: 06/27/25 20:06 Primary care physician: JUANA MEYERS Consults: 06/27/25 19:26 Occupational Therapy Eval and Treat Routine Reason for consultation: weakness Physical Therapy Eval and Treat Routine Reason for consultation: weakness 06/29/25 15:38 Consult to Urology Routine Consulting Provider: Curly Guerra Reason for consultation: Urter stone, hydro, bladder urinary retention DS: Diagnosis Discharge Diagnosis (1) Hypothyroidism: (2) Hypokalemia: (3) LJ (acute kidney injury): (4) Hydronephrosis: Plan As listed above, below and others that are not listed DS: Summary Hospital Course Hospital Course: Mrs. Bergeron is an 85-year-old female who came in with nonspecific symptoms including fatigue, confusion, loss of energy. 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 Creatinine is 1.84 and GFR is 26. This is likely subacute and progressive. I was able to find out that her kidney function was normal in 2023. I requested ultrasound of the kidney which showed mild right-sided hydronephrosis and significant dilatation of the bladder. No stone seen on ultrasound. Small amount of right perinephric fluid Aguillon catheter will be placed in to decompress the bladder UA showed 20 WBC. Patient was started on ceftriaxone for UTI. Urine cultures pending I was hoping that the treatment for UTI and the bladder decompression will improve her kidney function. Her creatinine improved from 1.84 down to 1.65 but subsequently went up to 1.72 therefore I requested a CAT scan of the pelvis to rule out other pelvic pathology. CAT scan showed that the bladder has been decompressed with the Aguillon. CAT scan also showed 3 mm stone in the distal right ureter with the distention of the right ureter proximally and the right-sided hydronephrosis. The stone was not seen on the ultrasound. CAT scan also showed significant fat stranding surrounding the right renal pelvis. I discussed her case with urologist Dr. Guerra who is recommending cystoscopy and stent. No anesthesia available here at [place] therefore patient will be transferred to [facility]. Will keep patient n.p.o. Continue antibiotic. Surprisingly, the urine cultures came back positive for 10,000 colonies of mixed colonies. I gave her family update the new finding on CT and the plan to transfer to [facility]. Family is in agreement. Hypothyroidism. Significant elevation of the TSH. TSH is 115. I was able to find out that last year her TSH was 35. Patient is not taking any medication. This might be causing some of the nonspecific symptoms reported by her daughter on presentation I started patient on intravenous Synthroid as well as Decadron suspecting that she may have degree of adrenal insufficiency Requested echocardiogram rule out severe cardiomyopathy caused by hypothyroidism. Echo does not show any cardiomyopathy but positive for biatrial dilatation, mild tricuspid regurgitation and pleural effusion I would recommend repeat TSH in 4 to 6 weeks and additional titration of thyroid hormonal therapy would need to be accomplished Metabolic encephalopathy, neurodegenerative disorder, probable vascular dementia. Altered mental status, cognitive loss, memory loss, generalized weakness. This could all be caused by progressive renal failure and/or severe hypothyroidism Requested CAT scan of the brain which does not show any acute intracranial process. Requested MRI of the brain rule out recent stroke. MRI does not show any acute stroke but positive for significant brain atrophy. Start patient on aspirin daily for primary stroke prevention Her altered mentation is likely secondary to vascular dementia, senile degeneration of the brain versus other neurodegenerative disorder in the setting of metabolic encephalopathy. Lower extremities edema. Could be related to hypothyroidism Requested venous study rule out DVT. Venous duplex is negative for DVT Requested echocardiogram rule out cardiomyopathy caused by severe hypothyroidism. Echocardiogram does not show cardiomyopathy. Start the patient on gentle diuresis. Continue heparin subcu for DVT prophylaxis. Half centimeter lesion the right side of her nose. Basal cell carcinoma until proven otherwise. Recommend biopsy. To be done in the outpatient setting. Hypokalemia Potassium supplementation UTI I started the patient on ceftriaxone Requested urine and blood cultures, pending Anemia, no evidence of acute blood loss. 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 Start patient on iron supplementation. Patient will likely require to have anemia workup to be done in the outpatient setting to be handled by PCP in collaboration with other needed outpatient providers. This may include but not limited to EGD, colonoscopy, referral to see hematology and other needed age-appropriate cancer screening. Cachexia, frailty, failure to thrive, muscle wasting and atrophy. Mild protein calorie malnutrition I started patient on oral protein supplementation. Requested CT abdomen pelvis rule out abdominal malignancy Patient may need to have cachexia and weight loss investigation which would need to include but not limited to ruling out underlying malignancy to be arranged in hand by PCP in the outpatient setting. She may need to have EGD, colonoscopy, breast exam, pelvic exam, Pap smear and others. Chronic, subacute medical conditions not listed above, abnormal labs and imaging, incidental findings seen on labs and or imaging. These would need to be addressed. Could be addressed later on or in the outpatient setting by PCP collaboration with other needed outpatient providers when time and condition are appropriate. I had discussed her case with her daughter who is POA at the bedside on 06/28, 06/29 and today 06/30. I provided her information about her disease, prognosis, expectation and trajectory. Answered all of her questions. Patient is DNR CC. Time Spent with Patient Time attestation: Total time spent providing and/or coordinating discharge services: Time spent: greater than 30 minutes Exam Narrative Exam Narrative: Patient is lying in bed. Awake. Able to answer simple questions. Unable to engage in any meaningful conversation. No distress. Chest is clear, heart is regular. Abdomen is soft. Minimal tenderness in the suprapubic area. No guarding, no rigidity. Constitutional Vital Signs, click to edit/add: Last Vital Signs Temp 97.7 F 06/30/25 08:00 Pulse 58 L 06/30/25 08:00 Resp 17 06/30/25 08:00 BP 136/73 06/30/25 08:00 Pulse Ox 92 L 06/30/25 08:00 O2 Del Method Room Air 06/30/25 08:00 DS: Data Data Completed and Pending Labs on day of discharge: Labs from last 24 hours 06/30/25 05:50 Sodium 142 Potassium 3.2 L Chloride 103 Carbon Dioxide 27.9 Anion Gap 14.3 BUN 14.0 Creatinine 1.72 H Est GFR ( Amer) 34 L Est GFR (Non-Af Amer) 28 L BUN/Creatinine Ratio 8.1 Glucose 76 Calcium 8.7 Discharge Plan Discharge Disposition: [facility] Contribution [employer] Instructions: Transferring to [facility]
[2025-06-30] MEDS: POTASSIUM CHLORIDE IN WATER 10 MEQ/100 ML PREMIX 100 MEQ IV (10:49)
[2025-06-30 10:52] VITALS: O2SAT 93
--- NOTE | 2025-06-30 12:28 | PC.NURSE ---
[facility] was sent with LR and the end of potassium bolus at discharge.
--- NOTE | 2025-07-01 08:43 | SWNOTE1 ---
Pt was transferred to [facility] for Urology. DAIANA updated Reji at [facility].
--- NOTE | 2025-07-01 13:01 | NUTR.NU ---
Pt was admitted 06/27/25 w/renal dysfunction and UTI. PO intakes of regular diet diminished during stay and pt was made NPO 06/30/25. Nutritional status declined; [place] [facility]t [place] function.
== END 2025-06-30 12:04 | disposition short-term general hospital (02) | DRG 682 ==
LOC: ER 20:45 → MS 21:06
PROVIDERS: Admitting Provider Internal Medicine; Emergency Provider Emergency Medicine; PCP Family Medicine; Visit Provider Internal Medicine
DX: N17.9 Acute kidney failure, unspecified (principal); G93.41 Metabolic encephalopathy; E44.1 Mild protein-calorie malnutrition; R64 Cachexia; J90 Pleural effusion, not elsewhere classified; E87.6 Hypokalemia; E03.9 Hypothyroidism, unspecified; N13.6 Pyonephrosis; N18.4 Chronic kidney disease, stage 4 (severe); D63.1 Anemia in chronic kidney disease; R62.7 Adult failure to thrive; R33.9 Retention of urine, unspecified; T50.996A Underdosing of other drugs, medicaments and biological substances, initial encounter; Z91.148 Patient's other noncompliance with medication regimen for other reason; R41.82 Altered mental status, unspecified; R41.3 Other amnesia; R60.0 Localized edema; C44.311 Basal cell carcinoma of skin of nose; Z68.33 Body mass index [BMI] 33.0-33.9, adult; R54 Age-related physical debility; Z66 Do not resuscitate; M62.58 Muscle wasting and atrophy, not elsewhere classified, other site; F01.50 Vascular dementia, unspecified severity, without behavioral disturbance, psychotic disturbance, mood disturbance, and anxiety; N32.89 Other specified disorders of bladder; I07.1 Rheumatic tricuspid insufficiency; N28.1 Cyst of kidney, acquired
CPT/HCPCS: 36415; 51702; 51798; 70450; 70551; 71045; 74176; 76775; 80048; 80053; 81001; 82306; 82533; 82607; 82728; 83540; 83550; 83735; 84443; 84484; 85025; 85027; 87040; 87086; 93005; 93306; 93970; 94761; 96374; 97161; 97165; 97530; 97535; 99285; J0650; J0696; J1100; J1644; J2060; J3480; J3486